=== PATIENT | male | born 1990 | race African-American/Black ===

== ENCOUNTER 2021-02-12 23:55 | Emergency (ER) | payer MEDICAID ==
[~2021-02-12] VITALS: Ht 185.4 cm; Wt 109.0 kg
[2021-02-13 00:03] VITALS: BP 152/79
[2021-02-13] MEDS ORDERED: TETANUS, DIPHTHERIA, PERTUSSIS VAC/PF 0.5ML (>7YR OLD) IM ONE (03:15)
[2021-02-13] MEDS ORDERED: ACETAMINOPHEN 325MG TABLET PO ONE (03:15)
[2021-02-13] MEDS ORDERED: LIDOCAINE HCL/PF 1% 10 MG/ML 5ML VIAL IJ ONE (03:15)
[2021-02-13] MEDS ORDERED: BACITRACIN ZINC OINT UDPKT TOP ONE (03:15)
== END 2021-02-13 04:15 | disposition home or self-care (01) ==
LOC: ER 23:55
DX: S01.81XA Laceration without foreign body of other part of head, initial encounter (principal); S01.511A Laceration without foreign body of lip, initial encounter; Y04.2XXA Assault by strike against or bumped into by another person, initial encounter; Y07.50 Unspecified non-family member, perpetrator of maltreatment and neglect; Y93.89 Activity, other specified; Y92.89 Other specified places as the place of occurrence of the external cause; Z23 Encounter for immunization; F12.90 Cannabis use, unspecified, uncomplicated
CPT/HCPCS: 12011; 90471; 90715; 99283; J3490; Z7610